=== PATIENT | female | born 1985 | race Asian ===

== ENCOUNTER 2017-03-18 16:07 | Observation (INO) | payer MEDICAID ==
[2017-03-18] MEDS ORDERED: DEXTROSE 5%-LACTATED RINGERS 1,000 ML IV PRN (17:45)
[2017-03-18] MEDS ORDERED: TERBUTALINE SULFATE 1 MG/ML VIAL SC PRN (17:45)
[2017-03-18] MEDS ORDERED: RINGERS SOLUTION,LACTATED 1,000 ML IV PRN (17:45)
[2017-03-18] MEDS ORDERED: TERBUTALINE SULFATE 1 MG/ML VIAL SC ONE (17:45)
[2017-03-18] MEDS ORDERED: BETAMETH ACET/BETAMET SOD PHOS 6 MG/ML VIAL IM SCH (18:00)
[2017-03-18] MEDS ORDERED: PENICILLIN G POTASSIUM 5 MILLIONUNT in DEXTROSE 5 % IN WATER 100 ML IV ONE ×2 (18:00)
[2017-03-18] MEDS ORDERED: NIFEdipine 10 MG CAPSULE PO SCH ×2 (18:30→19:45)
[2017-03-18 19:50] VITALS: BP 122/79
[2017-03-18] MEDS ORDERED: PENICILLIN G POTASSIUM 2.5 MILLIONUNT in DEXTROSE 5 % IN WATER 100 ML IV SCH ×2 (22:00)
== END 2017-03-18 19:30 | disposition short-term general hospital (02) ==
LOC: LAB 16:07 → MS 16:49 → INTOOBSV 16:49 → UNDOADMIN 16:49 → OB 16:49
PROVIDERS: ADMIT Obstetrics & Gynecology; ATTEND Obstetrics & Gynecology
DX: O60.03 Preterm labor without delivery, third trimester (principal); Z3A.36 36 weeks gestation of pregnancy
CPT/HCPCS: 59025; 87081; 96365; 96372; G0378

== ENCOUNTER 2017-04-03 11:09 | Inpatient (IN) | payer MEDICAID ==
--- OUTSIDE RECORDS SUMMARY | 2017-04-03 11:13 | XMS REPORT | Continuity of Care Document ---
:1985 Author Organization [facility] ([facility]) Address [address] [place] [address] Phone [phone] Care Team Providers Name Role Phone Kirit Thomson Primary Care Provider [phone] Source Comments This disclosure is being made pursuant to the Care Everywhere program, applicable federal and state laws, and may not contain all informaitonavailable regarding this patient.[facility] ([facility]) Active Allergies and Adverse Reactions No Known Allergies Current Medications Prescription Sig. Disp. Refills Start Date End Date Status betamethasone Inject 2 mL (12 mg 5 mL 0 03/19/2017 Active (CELESTONE SOLUSPAN) total) intramuscularly 6 mg/mL injection once for 1 dose. Active Problems Problem Noted Date contractions 03/18/2017 History of precipitous labor and deliveries, antepartum 03/18/2017 Currently Estimated Date of Delivery Comments Yes 04/18/2017 Based on Last Menstrual Period Most Recent Encounters Date Type Specialty Providers Description 03/19/2017 Hospital Encounter General Care Inpatient - Adult 03/18/2017 - Hospital Encounter General Care Renetta Hernandez, Dx: History of 03/19/2017 Inpatient - Adult DO precipitous labor Tess Parada and Tomas cabrera MD antepartum, third trimester (Primary Dx) 03/18/2017 Telephone Obstetrics Makenzie Juarez I, Chief Comp: Hospital To Hospital Transfer Social History Tobacco Use Types Packs/Day Years Used Date Never Assessed Last Filed Vital Signs Vital Sign Reading Time Taken Blood Pressure 113/52 03/19/2017 6:50 AM CDT Pulse - - Temperature 36.8 C (98.2 F) 03/19/2017 6:50 AM CDT Respiratory Rate - - Height - - Weight - - Body Mass Index - - Oxygen Saturation - - Plan of Care Health Maintenance Due Date Last Done Comments Hepatitis B Vaccine (1 of 3 - Primary Series) 1985 Tdap Vaccine 1996 Lipid Disorder Screening 2003 MMR Vaccine 2003 Td Vaccine 2003 Varicella Vaccine (1 of 2 - Adult - No Evidence of 2003 Immunity) Cervical Cancer Screening 2015 Influenza Vaccine: Seasonal (Season Ended) 2017 Results from Last 3 Months NEISSERIA GONORRHOEAE PCR (03/19/2017 7:01 AM) Component Value Range Gonorrhea PCR Negative Negative Specimen Other - Urine, Midstream clean catch Narrative Test methodology:PCR amplification; CT/NG Assay (NTQ-Data) CHLAMYDIA TRACHOMATIS DETECTION BY PCR (03/19/2017 7:01 AM) Component Value Range Chlamydia Trach PCR Negative Negative Specimen Other - Urine, Midstream clean catch Narrative Test methodology:PCR amplification; CT/NG Assay (NTQ-Data) URINE CULTURE, ROUTINE AEROBIC (03/19/2017 7:01 AM) Component Value Range Quantitative Culture No growth at 11/999 dilution Specimen Culture - Urine, Midstream clean catch DRUGS OF ABUSE - URINE (03/19/2017 7:00 AM) Component Value Range Amphetamines, Urine NegativeComment: Negative Test cut-off: 1000 ng/mL for d-methamphetamine. Benzodiazepine, Urine NegativeComment: Negative Test cut-off:100 ng/mL Cocaine, Urine NegativeComment: Negative Test cut-off:300 ng/mL Opiate, Urine NegativeComment: Negative Test cut-off:300 ng/mL for morphine Oxycodone, Urine NegativeComment: Negative Test cut-off:300 ng/mL Amphetamines assay cross-reacts well with amphetamine and methamphetamine, as well as the "tool and die designer" amphetamines MDMA ("Ecstasy"), MDA, MDEA ("Janet"), MBDB , PMA, and PMMA. Labetalol may also produce f alse positives due to cross-reactivity of a metabolite. The amphetamines assay has little or no cross-reactivity with ephedrine, pseudoephedrine, phentermine, and methylphenidate. Opiates assay has lo w cross-reactivity for buprenorphine, fentanyl, meperidine, methadone, oxycodone, and propoxyphene (all have cut-offs greater than 75,000 ng/mL). Please see Laboratory Services Handbook (http://healthcare.[facility]/path_ handbook.index.html) for more detailed information on assay cross-reactivity. Drug of abuse screening tests are to be used for medical purposes only and not for non-medical purposes (e.g., employee, lining vamper, or forensic testing). Specimen Urine TYPE AND SCREEN (BLOOD TYPE(ABORH) AND RBC ANTIBODY SCREEN) (03/19/2017 7:00 AM ) Component Value Range ABORH B Positive Specimen Expiration Date 2017-03-22 Antibody Screen Negative Specimen Blood CBC (COMPLETE BLOOD COUNT) (03/19/2017 7:00 AM) Component Value Range WBC Count 9.7 3.7-10.5 K/MM3 RBC Count 4.48 4.00-5.20 M/MM3 Hemoglobin 10.4(L) 11.9-15.5 g/dL Hematocrit 34(L) 35-47 % MCV (Mean Corpuscular Volume) 75(L) 82-99 FL MCH (Mean Corpuscular Hemoglobin) 23(L) 25-35 PG MCHC (Mean Corpuscular Hemoglobin Concentration) 31(L) 32-36 % Platelet Count 265 150-400 K/MM3 MPV (Mean Platelet Volume) 11.9 9.4-12.3 FL RBC Dist Width-STD 35.9(L) 36.4-46.3 FL RBC Distrib Width 13.5 9.0-14.5 % Nucleated RBC 0 /100 WBC Specimen Whole Blood
--- OUTSIDE RECORDS SUMMARY | 2017-04-03 11:53 | XMS REPORT | Continuity of Care Document ---
:1985 Author Organization [facility] ([facility]) Address [address] [place] [address] Phone [phone] Care Team Providers Name Role Phone Kirit Thomson Primary Care Provider [phone] Source Comments This disclosure is being made pursuant to the Care Everywhere program, applicable federal and state laws, and may not contain all informaitonavailable regarding this patient.[facility] ([facility]) Active Allergies and Adverse Reactions No Known [...] Adult 03/18/2017 - Hospital Encounter General Care Renteta Hernandez, Dx: History of 03/19/2017 Inpatient - [...] catch Narrative Test methodology:PCR amplification; CT/NG Assay ([facility] [place]) CHLAMYDIA TRACHOMATIS DETECTION BY PCR (03/19/2017 7:01 AM) Component Value Range Chlamydia Trach PCR Negative Negative Specimen Other - Urine, Midstream clean catch Narrative Test methodology:PCR amplification; CT/NG Assay ([facility] [place]) URINE CULTURE, ROUTINE AEROBIC (03/19/2017 7:01 AM) [...] amphetamine and methamphetamine, as well as the "senior instructional designer" amphetamines MDMA ("Ecstasy"), MDA, MDEA ("Janet"), [...] 75,000 ng/mL). Please see Laboratory Services Handbook (http://healthcare.[facility]/path_ handbook.index.html) for more detailed information on assay cross-reactivity. Drug of abuse screening tests are to be used for medical purposes only and not for non-medical purposes (e.g., employee, machine stoppage frequency checker, or forensic testing). Specimen Urine TYPE AND [...]
[2017-04-03] MEDS ORDERED: RINGERS SOLUTION,LACTATED 1,000 ML IV ONE (12:12)
[2017-04-03] MEDS ORDERED: LIDOCAINE HCL 50 ML VIAL PERI PRN (12:12)
[2017-04-03] MEDS ORDERED: ONDANSETRON HCL/PF 2 MG/ML VIAL IV PRN ×2 (12:12→20:51)
[2017-04-03] MEDS: OXYTOCIN/DEXTROSE 5%-WATER 30 UNITS/500 ML BAG IV ONE (20:27)
--- NOTE | 2017-04-03 20:42 | PN ---
Progess Note - Interim Narrative: 04/03/17 20:39 Patient rating her contractions 6 out of 10 Vital signs stable. FHT:150 baseline, reassuring Contractions spacing out Cervix: 5-6/80/-2, AROM-clear Impression: Intrauterine at 37-6/7 weeks in labor Plan: Fluid bolus in preparation for epidural
[2017-04-03] MEDS ORDERED: BUPIVACAINE HCL/0.9 % NACL/PF 250 ML EP PRN (20:51)
[2017-04-03] MEDS ORDERED: NALOXONE HCL 1 MG/1 ML SYRG IV PRN (20:51)
[2017-04-03] MEDS: DEXTROSE 5%-LACTATED RINGERS 1,000 ML IV PRN (20:57)
[2017-04-03] MEDS ORDERED: fentaNYL CITRATE/PF 50 MCG/ML AMPUL IT SCH (21:00)
--- NOTE | 2017-04-03 22:16 | OR ---
Anesthesia Procedure Note - Anesthesia Procedure Note Narrative: Vital Signs - Last Taken Temp 36.7 C 04/03/17 20:57 Pulse 93 04/03/17 20:57 Resp 17 04/03/17 20:57 BP 125/76 04/03/17 20:57 Pulse Ox 98 04/03/17 20:57 04/03/17 22:15 ANESTHESIA PROCEDURE NOTE Date of Procedure: 04/03/2017 Time of procedure: 2044. Performed by: Daniel Banda CRNA Parts Counter Associate: None. Preprocedure diagnosis: Active labor. Post procedure diagnosis: Same. Procedure: Insertion of labor epidural. Indications: The patient is a 31 -year-old multigravida female in active labor requesting labor epidural for pain management. Findings: See below. Details of the procedure: The patient was placed in a sitting position. Back was prepped with DuraPrep. Patient was then draped in a sterile fashion. Lidocaine 1% was infiltrated to the skin and subcutaneous tissues at the level of the L3 4 interspace. The epidural space was identified using a 18-gauge Tuohy needle with atny-ca-pynvvvnqax technique. 20 mcg fentanyl was given intrathecally using a 27 ga. spinal needle. Epidural catheter was inserted without difficulty. Negative test dose was elicited using 5 mL of 1.5% preservative-free lidocaine plus epinephrine 1 200,000. The epidural catheter was then taped and secured in place. EBL: Minimal. Fluids: N/A. Specimen: N/A. Post procedure condition: The patient tolerated the procedure well. No complications were noted. Thank you for this consultation. Sorensen CRNA
[2017-04-03] MEDS ORDERED: OXYTOCIN/DEXTROSE 5%-WATER 30 UNITS/500 ML BAG IV ONE (22:56)
[2017-04-04] MEDS: DEXTROSE 5%-LACTATED RINGERS 1,000 ML IV PRN (01:08)
--- NOTE | 2017-04-04 01:58 | OR ---
Operative Report - Dictated Report Narrative: Spontaneous vaginal delivery of viable female at 0135 on 04/04/2017 with Apgars 8 and 9, weighing 3085 g in DARON position. Cord clamping delayed approximately 30 seconds Placenta delivered complete, intact, with three vessel cord Estimated blood loss: less than 100 ml Lacerations: None History for MU Definition: * The number of deliveries resulting in a live the patient experienced prior to current hospitalization * The previous delivery of live twins or any live multiple gestation is considered one live event. *If primagravida or nulliparous is documented select zero for the number of previous live births. Live Events: 4
[2017-04-04] MEDS ORDERED: OXYTOCIN/DEXTROSE 5%-WATER 30 UNITS/500 ML BAG IV ONE (02:00)
[2017-04-04] MEDS ORDERED: GLYCERIN/WITCH HAZEL LEAF 40 APPL BOX TP PRN (02:00)
[2017-04-04] MEDS ORDERED: BENZOCAINE/MENTHOL 81 SPRAY CAN TP PRN (02:00)
[2017-04-04] MEDS ORDERED: BISACODYL 10 MG SUPP.RECT RC PRN (02:00)
[2017-04-04] MEDS ORDERED: oxyCODONE HCL/ACETAMINOPHEN 1 TAB TABLET PO PRN (02:00)
[2017-04-04] MEDS ORDERED: HYDROCORTISONE 30 APPL TUBE TP PRN (02:00)
[2017-04-04] MEDS ORDERED: SENNOSIDES 8.6 MG TABLET PO PRN (02:00)
[2017-04-04] MEDS: IBUPROFEN 800 MG TABLET PO PRN ×2 (04:37→18:02)
[2017-04-04] MEDS: OXYTOCIN/DEXTROSE 5%-WATER 30 UNITS/500 ML BAG IV ONE (04:38)
[2017-04-04] MEDS: DOCUSATE SODIUM 100 MG CAPSULE PO SCH ×2 (09:24→20:26)
[2017-04-04] MEDS: PRENATAL VIT#96/FERROUS FUM/FA 1 TAB TABLET PO SCH (09:25)
[2017-04-04] MEDS: oxyCODONE HCL/ACETAMINOPHEN 1 TAB TABLET PO PRN ×2 (13:31→19:27)
[2017-04-05] MEDS: oxyCODONE HCL/ACETAMINOPHEN 1 TAB TABLET PO PRN ×3 (07:10→20:47)
[2017-04-05] MEDS: IBUPROFEN 800 MG TABLET PO PRN ×3 (07:10→20:47)
[2017-04-05] MEDS: PRENATAL VIT#96/FERROUS FUM/FA 1 TAB TABLET PO SCH (09:11)
[2017-04-05] MEDS: DOCUSATE SODIUM 100 MG CAPSULE PO SCH ×2 (09:11→20:47)
--- NOTE | 2017-04-05 13:00 | PN ---
Subjective - Date and Time Seen Date: 04/05/17 Time: 12:57 Objective - Vitals Vitals: Last Vital Signs Temp 36.4 C L 04/05/17 09:00 Pulse 98 04/05/17 09:00 Resp 20 04/05/17 09:00 BP 119/68 04/05/17 09:00 Pulse Ox 98 04/05/17 09:00 Patient denies complaints. Lochia wnl Abdomen - soft, nontender Uterus - firm, at umbilicus - 1 No calf tenderness Impression: day #1 - s/p spontaneous vaginal delivery. Plan: Continue routine care Cauti Physician Documentation - Urinary Catheter Management Urethral ([place]) Date of Insertion: 04/03/17 Time of Insertion: 21:50 Date of Removal: 04/04/17 Time of Removal: 01:34
[2017-04-06] MEDS: oxyCODONE HCL/ACETAMINOPHEN 1 TAB TABLET PO PRN ×5 (01:11→21:22)
[2017-04-06] MEDS: DOCUSATE SODIUM 100 MG CAPSULE PO SCH ×3 (07:46→21:22)
[2017-04-06] MEDS: IBUPROFEN 800 MG TABLET PO PRN ×3 (07:47→23:54)
[2017-04-06] MEDS: PRENATAL VIT#96/FERROUS FUM/FA 1 TAB TABLET PO SCH ×2 (07:47→12:26)
--- NOTE | 2017-04-06 09:07 | PN ---
Subjective - Date and Time Seen Date: 04/06/17 Time: 09:06 Objective - Vitals Vitals: Last Vital Signs Temp 36.8 C 04/06/17 07:50 Pulse 71 04/06/17 07:50 Resp 20 04/06/17 07:50 BP 124/82 04/06/17 07:50 Pulse Ox 99 04/06/17 07:50 Patient denies complaints. Lochia wnl Abdomen - soft, nontender Uterus - firm, at umbilicus - 3 No calf tenderness Impression: day #2 - s/p spontaneous vaginal delivery. Plan: Routine discharge instructions Cauti Physician Documentation - Urinary Catheter Management Urethral ([place]) Date of Insertion: 04/03/17 Time of Insertion: 21:50 Date of Removal: 04/04/17 Time of Removal: 01:34
[2017-04-06 19:53] VITALS: BP 141/79
== END 2017-04-06 23:55 | disposition home or self-care (01) | DRG 775 ==
LOC: OBCLINIC 11:09 → OB 11:50
PROVIDERS: ADMIT Obstetrics & Gynecology; ATTEND Obstetrics & Gynecology
PROC: 10E0XZZ Delivery of Products of Conception, External Approach (ICD-10-PCS; principal; 2017-04-04)
PROC: 10907ZC Drainage of Amniotic Fluid, Therapeutic from Products of Conception, Via Natural or Artificial Opening (ICD-10-PCS; 2017-04-04)
PROC: 4A1HXCZ Monitoring of Products of Conception, Cardiac Rate, External Approach (ICD-10-PCS; 2017-04-04)
PROC: 4A033R1 Measurement of Arterial Saturation, Peripheral, Percutaneous Approach (ICD-10-PCS; 2017-04-04)
DX: O80 Encounter for full-term uncomplicated delivery (principal)